=== PATIENT | male | born 2005 | race Caucasian/White ===

== ENCOUNTER 2024-01-12 16:20 | Emergency (ER) | payer OTHER ==
--- NOTE | 2024-01-12 17:02 | ED ---
Psych HPI - General Chief Complaint: Psychiatric Symptoms Stated Complaint: PETITION Time Seen by Provider: 01/12/24 16:31 Source: patient, police, RN notes reviewed, old records reviewed Mode of arrival: ambulatory Limitations: no limitations - History of Present Illness Initial Comments: This is a 18-year-old male to the ER for evaluation, patient is having and currently suffering from significant loss of depression and need to go back on psychiatric medication. Brought in by PD Complaint: feels depressed -: days(s) Associated Psychiatric Symptoms: depression History of same: Yes Quality: constant, getting worse Improves With: none Worsens With: none Context: significant life stressor Associated Symptoms: denies other symptoms Treatments Prior to Arrival: none - Related Data Home Medications Medication Instructions Recorded Confirmed No Known Home Medications 01/12/24 01/12/24 Allergies Allergy/AdvReac Type Severity Reaction Status Date / Time No Known Allergies Allergy Verified 01/12/24 16:27 Review of Systems ROS Statement: Those systems with pertinent positive or pertinent negative responses have been documented in the HPI. ROS Other: All systems not noted in ROS Statement are negative. Past Medical History Past Medical History: No Reported History History of Any Multi-Drug Resistant Organisms: None Reported Additional Past Surgical History / Comment(s): "hole in my heart" Past Psychological History: Anxiety, Depression Smoking Status: Never smoker Past Alcohol Use History: None Reported Past Drug Use History: None Reported General Exam Limitations: no limitations General appearance: alert, in no apparent distress Head exam: Present: atraumatic, normocephalic, normal inspection Eye exam: Present: normal appearance, PERRL, EOMI. Absent: scleral icterus, conjunctival injection, periorbital swelling ENT exam: Present: normal exam, mucous membranes moist Neck exam: Present: normal inspection. Absent: tenderness, meningismus, lymphadenopathy Respiratory exam: Present: normal lung sounds bilaterally. Absent: respiratory distress, wheezes, rales, rhonchi, stridor Cardiovascular Exam: Present: regular rate, normal rhythm, normal heart sounds. Absent: systolic murmur, diastolic murmur, rubs, gallop, clicks GI/Abdominal exam: Present: soft, normal bowel sounds. Absent: distended, tenderness, guarding, rebound, rigid Extremities exam: Present: normal inspection, full ROM, normal capillary refill. Absent: tenderness, pedal edema, joint swelling, calf tenderness Back exam: Present: normal inspection Neurological exam: Present: alert, oriented X3, CN II-XII intact Psychiatric exam: Present: normal affect, normal mood Skin exam: Present: warm, dry, intact, normal color. Absent: rash Course Vital Signs 01/12/24 01/12/24 16:23 18:00 Temperature 98.1 F Pulse Rate 75 77 Respiratory 16 18 Rate Blood Pressure 119/82 117/62 O2 Sat by Pulse 95 98 Oximetry - Reevaluation(s) Reevaluation #1: 01/12/24 17:02 Medical records reviewed Reevaluation #2: 01/12/24 17:02 Medically cleared for psychiatric evaluation Reevaluation #3: Differential Mental Health Depression, anxiety, bipolar, psychosis, schizophrenia, borderline personality, situational depression, adjustment disorder, behavioral disorder, brain tumor, malingering, substance abuse, encephalopathy, medication reaction, dementia, hypothyroidism, degenerative neurologic disorder, lupus.... This is not meant to be all-inclusive list Medical Decision Making - Medical Decision Making 18 male to ER for evaluation patient presents today for evaluation of significant mood issues with significant depression here in the ER not homicidal or suicidal seen by psychiatry and okay for discharge home Disposition Clinical Impression: Depression, Acute anxiety, Adjustment reaction of adult life Disposition: HOME SELF-CARE Condition: Fair Instructions (If sedation given, give patient instructions): Depression (ED) Is patient prescribed a controlled substance at d/c from ED?: No Referrals: Nonstaff,Physician [REFERRING] - 1-2 days
[2024-01-12 21:22] VITALS: BP 114/67; PULSE 62; RESP 16; TEMP 97.6
== END 2024-01-12 21:33 | disposition home or self-care (01) ==
LOC: EC 16:20
DX: F43.23 Adjustment disorder with mixed anxiety and depressed mood (principal)
CPT/HCPCS: 82075; 99283